=== PATIENT | female | born 1995 | race Caucasian/White ===

== ENCOUNTER 2017-09-17 03:50 | Inpatient (IN) | payer OTHER ==
[~2017-09-17] VITALS: Ht 157.5 cm; Wt 49.7 kg
[2017-09-17] MEDS ORDERED: ALUMINUM/MAGNESIUM/SIMETH 30 ML CUP PO PRN (05:00)
[2017-09-17] MEDS ORDERED: diphenhydrAMINE HCL 50 MG CAP - HS PRN PO (05:00)
[2017-09-17] MEDS ORDERED: ACETAMINOPHEN 325 MG TAB PO PRN (05:00)
[2017-09-17] MEDS ORDERED: MAGNESIUM HYDROXIDE SUSP 30 ML CUP PO PRN (05:00)
[2017-09-17] MEDS ORDERED: diphenhydrAMINE HCL 50 MG/ML VIAL - HS PRN IM (05:00)
[2017-09-17 05:07] VITALS: BP 131/88; PULSE 108; RESP 20; TEMP 97.8; O2SAT 100
--- NOTE | 2017-09-17 11:33 | PD.TTN ---
Patient Problems 1. Discharge planning 2. Medication compliance 3. Knowledge deficit 4. Lack of coping skills Progress Toward Goals Provider Present: Dr. Aquilino Salinas Provider Input: 09-17-17 - Dr. Salinas reported that the patient was under the influence of "mollies" upon arrival. Patient will be discharged home today. Psychiatric Counselors Present: MARK Geiger Psych Therapist Input: 09-17-17 - Counselor will arrange for patient's discharge. Discharge Plan Patient will be discharged home with psychiatric and substance abuse follow-up at [facility]. Documentation Scribe: MARK Geiger Date Resolved: Sep 17, 2017 Madison Salinas Sep 17, 2017 11:33
--- NOTE | 2017-09-17 12:24 | HHI.HP ---
Provisional Diagnosis Admission Date Sep 17, 2017 at 03:50 Nursery I. 1. MDMA abuse with intoxication, intoxication resolved 2. Rule-out benzodiazepine abuse 3. Urine toxicology positive for cannabinoids Nursery II. 1. Some cluster B personality traits Certification of Person's Competence To Provide Express and Informed Consent I have personally examined Liz Kay , a person being served at [facility] on, Sep 17, 2017 12:24. Express and informed consent means consent voluntarily given in writing, by a competent person, after sufficient explanation and disclosure of the subject matter involved to enable the person to make a knowing and willful decision without any element of force, fraud, deceit, duress, or other form of constraint or coercion. This person is 18 years of age or older, is not now known to be incompetent to consent to treatment with a guardian advocate, and does not have a health care surrogate or proxy currently making medical treatment decisions. I have found this person to be one of the following: [x] Competent to provide express and informed consent, as defined above, for voluntary admission to this facility and is competent to provide express and informed consent for treatment. He/she has the consistent capacity to make well reasoned, willful, and knowing decisions concerning his or her medical or mental health treatment. The person fully and consistently understands the purpose of the admission for examination/placement and is fully capable of personally exercising all rights [place] Incompetent to provide express and informed consent to voluntary admission, and this is incompetent to provide express and informed consent to treatment. The person must be transferred to involuntary status and a petition for a guardian advocate filed with the Circuit Court. [] Refusing to provide express and informed consent to voluntary admission but is competent to provide express and informed consent for treatment. The person must be discharged or transferred to involuntary status. Form shall be completed within 24 hours of a person's arrival at the receiving facility and filed in the clinical record of each person: 1. Admitted on a voluntary basis 2. Permitted to provide express and informed consent to his/her own treatment 3. Allowed to transfer from involuntary to voluntary status 4. Prior to permitting a person to consent to his or her own treatment after having been previously found incompetent to consent to treatment. History of Present Illness Capacity: Has Capacity Psych Chief Complaint: "I took Alexa and went to a constitution party, and when I got back I felt really high." HPI Ms. Kay is a 21-year-old female with no reported past psychiatric history who presents in transfer from [facility] emergency department under a [place] act. Documentation from [facility] reviewed. Per the ED provider's notes, the patient presented there for drug abuse. Patient's sister- in-law told the ED provider that the patient had taken Alexa (apparently from a new drug dealer) and got into an argument with her boyfriend over allegations of patient's infidelity. Patient allegedly reported suicidal ideation to the ED provider. Reviewing our electronic medical record, it appears this is patient's first visit to [facility]. Patient seen and examined with nurse and nursing students. Chart reviewed. Case discussed with nursing staff. There has been no evidence of any suicidality or homicidality on the inpatient unit. The nurse has obtain collateral information from the patient's boyfriend's mother that is reassuring against concern for risk of harm to self/others. On my examination today, the patient is clinically sober. She is requesting discharge from the inpatient psychiatric unit today. She provides the following narrative for her presentation here. She says that on Wednesday evening she took some Alexa and went to a constitution party. When she returned from the constitution party she felt highly intoxicated and was trying to say something to her boyfriend but could not. She felt quite fidgety. She says that she continued in this fashion overnight and when her loved ones arose morning and found her unchanged, they took her into the emergency department. She does note that she had some hallucinations, chiefly visual, while she was acutely intoxicated. Presently, the patient denies any suicidal or homicidal ideation, intent or plan on direct questioning and contracts for safety. Patient denies any issues with mood, and I can elicit no depressive or hypomanic/manic symptoms. She does complain of some anxiety and seems to be seeking for benzodiazepine for this. She notes that she had been taking Xanax not prescribed to her to try to come down from the Alexa. She denies any audiovisual hallucinations presently. I can elicit no delusional material. Some cluster B personality traits are noted. There does not appear to be a self-care deficit. The remainder of the psychiatric ROS is negative. Patient has no physical complaints. Past psychiatric history: The patient denies a history of psychiatric diagnosis. She denies a history of inpatient or outpatient psychiatric treatment. She denies a history of suicide attempts. She denies a history of nonsuicidal self-injurious behavior. Family history: The patient denies any family history of serious mental illness , substance use disorder or suicide. Chemical dependency history: The patient admits to occasional use of cannabis, most recently on Wednesday. She also admits to Xanax use, most recently over the last several days to come down from the trivago but additionally reports recreational Xanax use over the last 6 months or so. Social history: The patient reports that she lives with her boyfriend of 4 years. This is reportedly a supportive relationship. She has no children. She is high school educated. She works at a [employer]. She denies any history. Denies any legal history. Denies any access to guns or firearms. Denies any congregational or spiritual beliefs. Denies any history of physical, verbal or sexual abuse. Review of Systems Except as stated in HPI: all other systems reviewed are Neg Past Family Social History Coded Allergies: No Known Allergies (Verified Allergy, Unknown, 09/17/17) Past Medical History Patient denies any significant medical history and takes no medications on an outpatient basis. No Active Prescriptions or Reported Meds Current Medications Medications (Trade) Dose Ordered Sig/Clive Route Start Time Stop Time Status Last Admin (Benadryl) 50 mg HS PRN PO 09/17/17 05:00 (Benadryl Inj) 50 mg HS PRN IM 09/17/17 05:00 (Tylenol) 650 mg Q4H PRN PO 09/17/17 05:00 (Milk Of Magnesia Liq) 30 ml DAILY PRN PO 09/17/17 05:00 (Mag-Al Plus Susp Liq) 30 ml Q6H PRN PO 09/17/17 05:00 Patient's Strengths (min. 2) Maintaining basic hygiene. Verbally fluent. Physical Exam Physical exam completed by ED provider at outside hospital. On my examination today, the patient appears to be in no acute physical distress. No motor abnormalities noted. No signs of withdrawal noted. Laboratories and vitals signs reviewed: Vital Signs Vital Signs Date Time Temp Pulse Resp B/P (MAP) Pulse Ox O2 Delivery O2 Flow Rate FiO2 09/17/17 05:07 97.8 108 20 131/88 (102) 100 Lab Results Laboratories from outside hospital reviewed: BMP reveals mild hyperglycemia in a nonfasting sample at 113. CBC reveals mild leukocytosis at 11.14 and mildly increased platelet count at 390. LFTs unremarkable. CK mildly elevated at 261. Basic urine toxicology positive for cannabinoids. Urinalysis reveals 1+ ketones, 2+ blood and positive for nitrites but no pyuria. CT of the head was read as normal. Mental Status Examination Appearance: Appropriate (in hospital attire. Fairly well groomed. Maintaining basic hygiene.) Consciousness: Alert Orientation: x4 Motor Activity: Normal gait Speech: Unremarkable Language: Adequate Fund of Knowledge: Adequate Attention and Concentration: Adequate Memory: Unremarkable Mood: Appropriate, Anxious (mild) Affect: Appropriate Thought Process & Associations: Intact, Logical, Linear Thought Content: Appropriate Hallucination Type: None Delusion Type: None Suicidal Ideation: No Suicidal Plan: No Suicidal Intention: No Homicidal Ideation: No Homicidal Plan: No Homicidal Intention: No Insight: Fair Judgment: Adequate (fair) Assessment & Plan Problem List: (1) 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 Patient apparently began acting strangely after using MDMA. She may have articulated some suicidal ideation while in the emergency department, but it appears that she was acutely intoxicated at that time. On my exam, the patient is clinically sober. She denies suicidal or homicidal ideation and contracts for safety. There is no evidence of any unstable mental illness as defined under the [place] act in this patient at this time. She appears to be attending to her basic needs. Nurse has obtained reassuring collateral. Suicide and violence risk assessment both suggest lower imminent risk from mental illness as defined under [place] act. Substance use is a chronic risk factor, and I have recommended that she pursue chemical dependency evaluation and treatment on an outpatient basis. Synthesizing the above data and based on the available information, I mail carrier and clerk that the patient does not presently meet the [place] act criteria. She is declining voluntary psychiatric hospitalization and requesting discharge from the inpatient psychiatric unit today. I have no basis to retain her over her objection. Patient will be discharged home today with psychiatric follow-up and chemical dependency follow-up as arranged by counselor. Patient is also to follow-up with primary care. I have counseled the patient regarding warning signs for need to return to the psychiatric emergency room as part of a general safety plan. I have provided the patient with no prescriptions on discharge. This note serves also as my discharge summary. Request HC Surrog/Guard Advoc?: No Salo Salinas MD Sep 17, 2017 12:24
== END 2017-09-17 15:15 | disposition home or self-care (01) | DRG 897 ==
LOC: H270 03:50
PROVIDERS: ADMIT Psychiatry & Neurology Psychiatry; ATTEND Psychiatry & Neurology Psychiatry
DX: F16.10 Hallucinogen abuse, uncomplicated (principal)